=== PATIENT | male | born 2000 | race Caucasian/White ===

== ENCOUNTER 2023-10-11 22:28 | Emergency (ER) | payer MEDICAID ==
[~2023-10-11] VITALS: Ht 172.7 cm; Wt 82.0 kg
[2023-10-11 22:52] VITALS: BP 101/45; PULSE 55; RESP 16; TEMP 99.2; O2SAT 100
[2023-10-11] MEDS ORDERED: IBUPROFEN 600MG TABLET PO ONE (23:15)
[2023-10-12] MEDS ORDERED: IBUP-2028 MT (01:31)
== END 2023-10-12 03:49 | disposition home or self-care (01) ==
LOC: ER 22:28
DX: S76.012A Strain of muscle, fascia and tendon of left hip, initial encounter (principal); S76.011A Strain of muscle, fascia and tendon of right hip, initial encounter; V49.49XA Driver injured in collision with other motor vehicles in traffic accident, initial encounter; Y93.89 Activity, other specified; Y92.89 Other specified places as the place of occurrence of the external cause; Y99.8 Other external cause status
CPT/HCPCS: 72170; 73030; 73620; 99284